=== PATIENT | male | born 1960 | race Caucasian/White ===

== ENCOUNTER 2017-09-26 07:12 | Day surgery (SDC) | payer BC ==
[2017-09-26] MEDS ORDERED: PROPOFOL 10 MG/ML VIAL IV ONE (07:13)
[2017-09-26] MEDS ORDERED: LIDOCAINE 1% MDV (10MG/ML) 20ML VIAL SQ ONE (07:13)
--- NOTE | 2017-09-26 12:30 | Operative Note ---
DATE OF SURGERY: 09/26/2017 Surgeon: Tanner Goldsimth DO Referring physician: Donnie Barboza DO PREOPERATIVE DIAGNOSIS: Screening colonoscopy. POSTOPERATIVE DIAGNOSIS: Screening colonoscopy. OPERATION: COLONOSCOPY TO THE CECUM HISTORY: The patient is a 57-year-old male who has a known history of colonic polyps. He did come in to discuss colonoscopy. The risks, benefits, and alternatives were discussed. His risks include bleeding, infection, missed lesions, perforations. He understood this fully. Therefore, consent was signed, questions were answered. PROCEDURE: He was taken to the endoscopy suite and placed in the supine position. Appropriate monitoring was placed including nasal 02, pulse oximetry, and blood pressure cuff. The patient was then rotated into the left lateral position. Propofol anesthesia was titrated to effect. At this time, a digital rectal exam was done which revealed no internal masses. A well-lubricated PCF-180AL colonoscope was inserted in the patient's rectum and advanced to the level of the sigmoid, up the descending over the transverse colon, down the ascending colon to the cecum. Once the cecum was reached, it was identified by the appendicial orifice and the ileocecal valve. The scope was then slowly withdrawn, inspecting all mucosal surface areas. There were normal folds and distensibility seen. All areas inspected, were grossly normal. At this time, once the level of the rectum was reached, retroflexion maneuver was done. There were minimal internal hemorrhoids. There was a skin tag noted as well. The scope was straightened, gas evacuated. The scope was slowly removed. FINDINGS AT THE TIME OF COLONOSCOPY: Normal colon. Recommend repeating this in 10 years or sooner if any problems arise. CC: DO NASEEM Bowers
== END 2017-09-26 09:06 | disposition home or self-care (01) ==
LOC: HOP 07:12
PROVIDERS: ATTEND Surgery
DX: Z12.11 Encounter for screening for malignant neoplasm of colon (principal); Z86.010 Personal history of colon polyps
CPT/HCPCS: 00812; G0121